=== PATIENT | female | born 1960 | race Caucasian/White ===

== ENCOUNTER 2022-10-05 08:13 | Emergency (ER) | payer BC, MEDICARE ==
[~2022-10-05] VITALS: Ht 160 cm; Wt 62.6 kg
[2022-10-05] MEDS ORDERED: PROGRAF1 MG PO (08:49)
[2022-10-05] MEDS ORDERED: PREDNISONE20 MG PO (08:50)
[2022-10-05] MEDS ORDERED: FAMOTIDINE20 MG PO (08:51)
[2022-10-05] MEDS ORDERED: MYCOPHENOLIC A360 MG PO (08:53)
[2022-10-05] MEDS ORDERED: LIPITOR10 MG PO (08:54)
[2022-10-05] MEDS ORDERED: NORVASC2.5 MG PO (08:58)
[2022-10-05] MEDS ORDERED: ZETIA10 MG PO (09:00)
[2022-10-05] MEDS ORDERED: LEVOTHYROXINE100 MC2 PO (09:01)
[2022-10-05] MEDS ORDERED: ONDANSETRON ODT8 MG PO (10:46)
== END 2022-10-05 10:53 | disposition home or self-care (01) ==
LOC: ED 08:13
DX: U07.1 COVID-19 (principal); N28.9 Disorder of kidney and ureter, unspecified; Z88.5 Allergy status to narcotic agent; Z88.1 Allergy status to other antibiotic agents; Z79.899 Other long term (current) drug therapy; Z79.52 Long term (current) use of systemic steroids
CPT/HCPCS: 36415; 71045; 80053; 81001; 85025; 87502; 96374; 99284-25; C9803; J2405; J7030; U0003